=== PATIENT | male | born 1995 | race Caucasian/White ===

== ENCOUNTER 2022-09-03 15:14 | Emergency (ER) | payer BC | END 2022-09-03 17:55 | disposition home or self-care (01) | LOC: CSHERS 15:14 | DX: K40.90 Unilateral inguinal hernia, without obstruction or gangrene, not specified as recurrent (principal) | CPT/HCPCS: 76882 ==

== ENCOUNTER 2022-09-14 09:50 | Day surgery (SDC) | payer BC ==
[2022-09-12 15:11] VITALS: BMI 27.6
[2022-09-14] MEDS ORDERED: CEFAZOLIN 2 GM VIAL ONE (10:54)
[2022-09-14] MEDS ORDERED: Midazolam HCl 2 mg/2 ml Vial ONE (11:08)
[2022-09-14] MEDS ORDERED: Bupivacaine HCl 0.5%/Epinephrine 1:200,000/PF 30 ml Vial ONE (11:08)
[2022-09-14] MEDS ORDERED: HYDROmorphone 0.5 MG/0.5 ML SYRINGE ONE (12:02)
[2022-09-14] MEDS ORDERED: Rocuronium Bromide 10 MG/ML (10ML VIAL) ONE (12:05)
[2022-09-14] MEDS ORDERED: Dexamethasone 4 mg/ml Vial ONE ×2 (12:05→12:35)
[2022-09-14] MEDS ORDERED: Ondansetron PF 4 MG/2 ML Vial ONE (12:05)
[2022-09-14] MEDS ORDERED: Lidocaine 2% PF 5 ML VIAL ONE (12:05)
[2022-09-14] MEDS ORDERED: Fentanyl 100 MCG/2 ML VIAL ONE (12:05)
[2022-09-14] MEDS ORDERED: PROPOFOL 20 ML ONE (12:05)
[2022-09-14] MEDS ORDERED: Ketorolac Tromethamine 30 MG/ML VIAL ONE (12:05)
[2022-09-14] MEDS ORDERED: Glycopyrrolate 0.2 MG/ML 5 ML SYRINGE ONE (13:07)
[2022-09-14] MEDS ORDERED: Acetaminophen 325 MG TAB PO PRN (13:32)
[2022-09-14] MEDS ORDERED: HYDROcodone/Acetaminophen 5/325 mg Tablet PO PRN (13:32)
== END 2022-09-14 14:55 | disposition home or self-care (01) ==
LOC: CSHSDC 09:50
PROVIDERS: ATTEND Surgery
PROC: 0YQ64ZZ Repair Left Inguinal Region, Percutaneous Endoscopic Approach (ICD-10-PCS; principal; 2022-09-14)
DX: K40.90 Unilateral inguinal hernia, without obstruction or gangrene, not specified as recurrent (principal); J45.909 Unspecified asthma, uncomplicated
CPT/HCPCS: C1713; J1100; J1170; J1885; J2001; J2250; J2405; J2704; J3010